=== PATIENT | male | born 1960 | race Caucasian/White ===

== ENCOUNTER 2023-07-28 13:02 | Emergency (ER) | payer OTHER ==
[~2023-07-28] VITALS: Ht 177.8 cm; Wt 98.0 kg
[2023-07-28 13:18] VITALS: BP 10/69; RESP 16; O2SAT 97
[2023-07-28 13:28] VITALS: PULSE 70
[2023-07-28] MEDS ORDERED: CYCLOBENZAPRINE HCL 10 MG TAB PO ONE (13:45)
[2023-07-28] MEDS ORDERED: CYCL-839 PO (16:25)
[2023-07-28] MEDS ORDERED: MELO-335 PO (16:25)
[2023-07-28] MEDS ORDERED: KETOROLAC TROMETH 60MG/2ML VIAL IM ONE (16:30)
== END 2023-07-28 18:44 | disposition home or self-care (01) ==
LOC: ER 13:02
DX: M79.10 Myalgia, unspecified site (principal); I10 Essential (primary) hypertension; E11.9 Type 2 diabetes mellitus without complications; M54.2 Cervicalgia; Z79.899 Other long term (current) drug therapy; V43.53XA Car driver injured in collision with pick-up truck in traffic accident, initial encounter; Y93.I9 Activity, other involving external motion; Y92.411 Interstate highway as the place of occurrence of the external cause; Y99.8 Other external cause status
CPT/HCPCS: 70450; 71045; 72125; 93005; 96372; 99285; J1885